=== PATIENT | female | born 1990 | race Caucasian/White ===

== ENCOUNTER 2020-04-29 07:08 | Observation (INO) | payer BC ==
[2020-04-29] MEDS ORDERED: KETOROLAC TROMETHAMINE 60 MG/2 ML SDV ONE (09:32)
[2020-04-29] MEDS ORDERED: METOCLOPRAMIDE HCL INJ/PF 10 MG/2 ML SDV ONE (09:32)
[2020-04-29] MEDS ORDERED: ONDANSETRON HCL INJ/PF 4 MG/2 ML SDV ONE (09:32)
[2020-04-29] MEDS ORDERED: DEXAMETHASONE SOD PHOSPHATE INJ 4 MG/1 ML VIAL ONE (09:32)
[2020-04-29] MEDS ORDERED: LIDOCAINE 2% INJ-PF (20 MG/ML) 2 ML AMPUL ONE (09:32)
[2020-04-29] MEDS ORDERED: ROCURONIUM BROMIDE INJ 50 MG/5 ML VIAL IV ONE (09:32)
[2020-04-29] MEDS ORDERED: NORMAL SALINE 1000 ML 1,000 ML IV ONE ×2 (10:08→14:44)
--- NOTE | 2020-04-29 10:09 | ER Document Report ---
ED General - General Stated Complaint: NAUSEA/VOMITING Time Seen by Provider: 04/29/20 09:34 Mode of Arrival: Medic Information source: Patient Notes: This 29-year-old woman presents to the emergency department via EMS with a complaint of nausea and vomiting, abdominal pain with associated diarrhea. She states that she ate steak and zucchini from a local restaurant last night. Began having symptoms in the eeg tech about 5 AM and has continued to feel dizzy lightheaded and nauseated. She complains of pain in the lower abdominal region, presently stating she does not need anything for pain. She denies fev er, cough, body aches and pains or contact with coronavirus known patient. - Related Data Allergies/Adverse Reactions: No Known Allergies Allergy (Verified 04/29/20 11:30) Past Medical History - Social History Smoking Status: Unknown if Ever Smoked Family History: Reviewed & Not Pertinent Review of Systems - Review of Systems Notes: Constitutional: Negative for fever. HENT: Negative for sore throat. Eyes: Negative for visual changes. Cardiovascular: Negative for chest pain. Respiratory: Negative for shortness of breath. Gastrointestinal: + Abdominal pain, +vomiting ,+ diarrhea. Genitourinary: Negative for dysuria. Musculoskeletal: Negative for back pain. Skin: Negative for rash. Neurological: Negative for headaches, weakness or numbness. 10 point ROS negative except as marked above and in HPI. Physical Exam - Vital signs Vitals: Temp Pulse Resp BP Pulse Ox 97.7 F 93 20 115/75 100 04/29/20 07:30 04/29/20 07:30 04/29/20 07:30 04/29/20 07:30 04/29/20 07:30 - Notes Notes: PHYSICAL EXAMINATION: Physical Exam: General: Well-nourished well-developed 29-year-old female in no acute distress HEENT: NC/AT, pupils equal round and reactive to light, MM moist,nares clear, oropharynx clear, airway patent Neck: supple, no adenopathy, no masses. Good range of motion Lungs: clear, no wheezing, no rales no rhonchi CVS: Regular rate and rhythm no murmur gallop or rub Abdomen: Soft, active, right lower quadrant tenderness at McBurney's point, + rebound, no masses, no hepatosplenomegaly Ext: No edema, clubbing or cyanosis. Neuro: Alert and responsive, moving all 4 extremities on command, cranial nerves intact, no focal findings Skin: Intact no open lesions, no rash PSYCH: Normal mood, normal affect. Course - Re-evaluation Re-evalutation: 04/29/20 14:39 I have discussed the findings of the CT scan with the patient. Apparently noted by radiology to have appendix which appears prominent and fluid-filled. Very little intra-abdominal fat limits evaluation for associated inflammatory change. Otherwise CT of the abdomen pelvis is normal. I have explained to the patient I will have a surgical consultation to evaluate her for possible appendectomy. Patient notes that she needs something else for pain. 04/29/20 14:43 I discussed the patient with a surgical nurse production control coordinator Dr. Ness they will see the patient in the emergency department. A rapid coronavirus test is ordered and patient is started on the antibiotics and fluids. - Vital Signs Vital signs: Temp Pulse Resp BP Pulse Ox 98.0 F 89 18 99/54 L 98 04/30/20 03:29 04/30/20 03:29 04/30/20 03:29 04/30/20 03:29 04/30/20 03:29 - Laboratory Result Diagrams: 04/29/20 10:50 04/29/20 10:50 Laboratory results interpreted by me: 04/29/20 04/29/20 04/29/20 10:50 10:50 10:50 WBC 18.4 H Seg Neuts % (Manual) 88 H Band Neutrophils % 7 H Lymphocytes % (Manual) 2 L Abs Neuts (Manual) 17.5 H Abs Lymphs (Manual) 0.4 L Chloride 108 H Urine Protein 30 H Urine Glucose (UA) 50 H Urine Ketones 80 H - Diagnostic Test Radiology reviewed: Image reviewed, Reports reviewed Discharge - Discharge Clinical Impression: Right lower quadrant abdominal pain Acute appendicitis Qualifiers: Acute appendicitis type: unspecified acute appendicitis type Qualified Code(s): K35.80 - Unspecified acute appendicitis Leukocytosis Qualifiers: Leukocytosis type: other Qualified Code(s): D72.828 - Other elevated white blood cell count Condition: Good Disposition: ADMITTED INPATIENT Admitting Provider: Surgicalist - Dr. Ness Unit Admitted: Surgical Floor
[2020-04-29 11:15] LABS: HEMATOCRIT 43.1 % (36.0-47.0); HEMOGLOBIN 14.8 g/dL (12.0-15.5); MEAN CORPUSCULAR HEMOGLOBIN 31.4 pg (27.0-33.4); MEAN CORPUSCULAR HGB CONC 34.3 g/dL (32.0-36.0); MEAN CORPUSCULAR VOLUME 92 fl (80-97); PLATELET COUNT 182 10^3/uL (150-450); RED CELL DISTRIBUTION WIDTH 12.4 % (11.5-14.0); WHITE BLOOD COUNT 18.4 10^3/uL (4.0-10.5)
[2020-04-29 11:40] LABS: ALKALINE PHOSPHATASE 52 U/L (38-126); ANION GAP 7 (5-19); ASPARTATE AMINO TRANSFERASE 35 U/L (14-36); BLOOD UREA NITROGEN 11 mg/dL (7-20); CALCIUM 8.6 mg/dL (8.4-10.2); CARBON DIOXIDE 23 mmol/L (22-30); CHLORIDE 108 mmol/L (98-107); GLUCOSE 107 mg/dL (75-110)
[2020-04-29 11:49] LABS: ABSOLUTE LYMPHOCYTES# (MANUAL) 0.4 10^3/uL (0.5-4.7); ABSOLUTE MONOCYTES # (MANUAL) 0.6 10^3/uL (0.1-1.4); BAND NEUTROPHILS % (MANUAL) 7 % (3-5); BASOPHILS % (MANUAL) 0 % (0-2); EOSINOPHILS % (MANUAL) 0 % (0-6); LYMPHOCYTES % (MANUAL) 2 % (13-45); MONOCYTES % (MANUAL) 3 % (3-13); SEGMENTED NEUTROPHILS % (MAN) 88 % (42-78); TOTAL CELLS COUNTED 100
[2020-04-29 11:50] LABS: PLATELET COMMENT ADEQUATE; RBC MORPHOLOGY COMMENT NORMO-CYTIC/CHROMIC
[2020-04-29 11:53] LABS: APPEARANCE,URINE CLEAR; BILIRUBIN,URINE NEGATIVE (NEGATIVE); COLOR,URINE YELLOW; GLUCOSE, URINE 50 mg/dL (NEGATIVE); KETONES,URINE 80 mg/dL (NEGATIVE); PROTEIN,URINE 30 mg/dL (NEGATIVE); URINE SPECIFIC GRAVITY 1.018; UROBILINOGEN,URINE NEGATIVE mg/dL (<2.0)
[2020-04-29] MEDS ORDERED: ONDANSETRON HCL INJ/PF 4 MG/2 ML SDV IV ONE (12:09)
[2020-04-29] MEDS ORDERED: HYDROMORPHONE HCL INJ/PF 2 MG/ML AMPULE IV ONE (12:09)
--- NOTE | 2020-04-29 14:14 | RADIOLOGY REPORT (SQ) ---
EXAM DESCRIPTION: CT ABD/PELVIS WITH IV ONLY IMAGES COMPLETED DATE/TIME: 04/29/2020 1:53 pm REASON FOR STUDY: Abdominal pain, right lower quadrant COMPARISON: None. TECHNIQUE: CT scan of the abdomen and pelvis performed using helical scanning technique with dynamic intravenous contrast injection. No oral contrast. Images reviewed with lung, soft tissue, and bone windows. Reconstructed coronal and sagittal MPR images reviewed. Delayed images for evaluation of the urinary system also acquired. All images stored on PACS. All CT scanners at this facility use dose modulation, iterative reconstruction, and/or weight based d osing when appropriate to reduce radiation dose to as low as reasonably achievable (ALARA). [facility]: Dose Right [facility]: CareDose [facility]: Dose Right [facility]: Teradose 4D [facility]: Metaboli CONTRAST TYPE AND DOSE: contrast/concentration: Isovue 350.00 mmol/ml; Total Contrast Delivered: 67. 0 ml; Total Saline Delivered: 42.0 ml RENAL FUNCTION: BUN 11; creatinine 0.5 RADIATION DOSE: CT Rad equipment meets quality standard of care and radiation dose reduction techniq ues were employed. CTDIvol: NaN - NaN mGy. DLP: 0 mGy-cm.. LIMITATIONS: None. FINDINGS: LOWER CHEST: No significant findings. No nodules or infiltrates. LIVER: Normal size. No masses. No dilated ducts. SPLEEN: Normal size. No focal lesions. PANCREAS: No masses. No significant calcifications. No adjacent inflammation or peripancreatic fluid collections. Pancreatic duct not dilated. GALLBLADDER: No identified stones by CT criteria. No inflammatory changes to suggest cholecystitis. ADRENAL GLANDS: No significant masses or asymmetry. RIGHT KIDNEY AND URETER: No solid masses. No significant calcifications. No hydronephrosis or hyd roureter. LEFT KIDNEY AND URETER: No solid masses. No significant calcifications. No hydronephrosis or hydr oureter. AORTA AND VESSELS: No aneurysm. No dissection. Renal arteries, SMA, celiac without stenosis. RETROPERITONEUM: No retroperitoneal adenopathy, hemorrhage or masses. BOWEL AND PERITONEAL CAVITY: No inflammatory changes or obstruction. Fluid is seen within multiple l oops of small bowel. APPENDIX: The appendix appears fluid filled and mildly prominent, measuring up to 11 mm in greatest o rthogonal dimension. This structure is positioned deep within the pelvis adjacent to the right adnex a. PELVIS: Simple appearing free fluid is seen within the pelvic cul-de-sac. The uterus and adnexa appe ar grossly normal. The bladder is unremarkable. ABDOMINAL WALL: No masses. No hernias. BONES: No significant or acute findings. OTHER: No other significant finding. IMPRESSION: The appendix appears mildly prominent and fluid-filled. There is a paucity of intra-abd ominal fat, limiting evaluation for associated inflammatory changes. Otherwise unremarkable CT appea lindsay of the abdomen and pelvis. TECHNICAL DOCUMENTATION: JOB ID: [id number] Quality ID # [id number]: Final reports with documentation of one or more dose reduction techniques (e.g., Au tomated exposure control, adjustment of the mA and/or kV according to patient size, use of iterative reconstruction technique) 2010 [employer]- All Rights Reserved Reading location - IP/workstation name: [email or web address]
[2020-04-29] MEDS ORDERED: PIPERACILLIN/TAZOBACTAM 3.375 GM VIAL IV ONE (14:43)
[2020-04-29] MEDS ORDERED: PROPOFOL INJ 200 MG/20 ML VIAL IV ONE (16:43)
[2020-04-29] MEDS ORDERED: HYDROMORPHONE HCL INJ/PF 2 MG/ML AMPULE ONE (16:43)
[2020-04-29] MEDS ORDERED: MIDAZOLAM 2 MG/2 ML INJ ONE (16:43)
--- NOTE | 2020-04-29 17:08 | PDOC H&P ---
History of Present Illness Admission Date/PCP: 04/29/20 15:44 Patient complains of: Abdominal pain History of Present Illness: PAO ALVAREZ is a 29 year old female Presents emergency department via ground rescue complaining of a 1.5-day history of abdominal pain localized to the suprapubic area and right lower quadrant. Patient was seen in the emergency department where she is found to have right lower quadrant tenderness and a leukocytosis of 18,000. A CT scan of the abdomen was performed without oral contrast which showed a thickened appendix, fluid-filled consistent with early appendicitis, no evidence of free air; minimal fluid in the pelvis. Surgery was consulted. COVID-19 test obtained which was negative. Patient reports having some crampy abdominal pain, loose stools diarrhea all fairly new in onset several weeks ago. She saw compounding scaler at [facility] within the past 2 weeks who recommended fiber. No procedures were perf ormed. Patient denies family history of inflammatory bowel disease, trauma, or previous abdominal problems. She denies constipation. Past Medical History Medical History: None Psychiatric Medical History: Reports: Depression Past Surgical History Past Surgical History: Reports: Tonsillectomy Social History Information Source: Patient Smoking Status: Never Smoker Electronic Cigarette use?: No Frequency of Alcohol Use: Rare Hx Recreational Drug Use: No Family History Family History: None Parental Family History Reviewed: No Children Family History Reviewed: No Sibling(s) Family History Reviewed.: No Medication/Allergy Allergies/Adverse Reactions: No Known Allergies Allergy (Verified 04/29/20 11:30) Review of Systems Constitutional: PRESENT: as per HPI Eyes: ABSENT: visual disturbances Ears: ABSENT: hearing changes Cardiovascular: ABSENT: chest pain, dyspnea on exertion, edema, orthropnea, palpitations Respiratory: ABSENT: cough, hemoptysis Gastrointestinal: PRESENT: as per HPI Genitourinary: ABSENT: dysuria, hematuria Musculoskeletal: ABSENT: joint swelling Integumentary: ABSENT: rash, wounds Neurological: ABSENT: abnormal gait, abnormal speech, confusion, dizziness, focal weakness, syncope Psychiatric: ABSENT: anxiety, depression, homidical ideation, suicidal ideation Hematologic/Lymphatic: ABSENT: easy bleeding, easy bruising Physical Exam Vital Signs: Temp Pulse Resp BP Pulse Ox 97.7 F 93 20 115/75 100 04/29/20 09:15 04/29/20 07:30 04/29/20 07:30 04/29/20 07:30 04/29/20 07:30 Intake & Output 04/28/20 04/29/20 04/30/20 06:59 06:59 06:59 Intake Total 1000 Balance 1000 Weight 59 kg General appearance: PRESENT: no acute distress Head exam: PRESENT: normocephalic Eye exam: PRESENT: EOMI Mouth exam: PRESENT: dry mucosa Neck exam: PRESENT: full ROM Respiratory exam: PRESENT: clear to auscultation christiano Cardiovascular exam: PRESENT: RRR Pulses: PRESENT: normal carotid pulses, normal radial pulses, normal femoral pulses, normal dorsalis pedis pul GI/Abdominal exam: PRESENT: guarding, other - Tender right lower quadrant with guarding to moderate palpation. No rigidity. No umbilical groin hernias. Rectal exam: PRESENT: deferred Extremities exam: PRESENT: full ROM Musculoskeletal exam: PRESENT: full ROM Neurological exam: PRESENT: oriented to person, oriented to place, oriented to time, oriented to situation Psychiatric exam: PRESENT: appropriate affect Skin exam: PRESENT: dry Results Laboratory Results: 04/29/20 10:50 04/29/20 10:50 04/29/20 04/29/20 04/29/20 10:50 10:50 10:50 WBC 18.4 H RBC 4.70 Hgb 14.8 Hct 43.1 MCV 92 MCH 31.4 MCHC 34.3 RDW 12.4 Plt Count 182 Seg Neutrophils % Not Reportable Sodium 137.5 Potassium 4.0 Chloride 108 H Carbon Dioxide 23 Anion Gap 7 BUN 11 Creatinine 0.55 Est GFR ( Amer) > 60 Glucose 107 Calcium 8.6 Total Bilirubin 1.0 AST 35 Alkaline Phosphatase 52 Total Protein 7.0 Albumin 4.0 Urine Color YELLOW Urine Appearance CLEAR Urine pH 8.0 Ur Specific [place] 1.018 Urine Protein 30 H Urine Glucose (UA) 50 H Urine Ketones 80 H Urine Blood NEGATIVE Urine RBC (Auto) 2 Impressions: Abdomen/Pelvis CT 04/29/20 12:10 IMPRESSION: The appendix appears mildly prominent and fluid-filled. There is a paucity of intra-abdominal fat, limiting evaluation for associated inflammatory changes. Otherwise unremarkable CT appearance of the abdomen and pelvis. Assessment & Plan - Diagnosis (1) Acute appendicitis Qualifiers: Acute appendicitis type: unspecified acute appendicitis type Qualified Code(s): K35.80 - Unspecified acute appendicitis Is this a current diagnosis for this admission?: Yes Plan: Impression: Right lower quadrant abdominal pain and tenderness, localized, le ukocytosis and CT scan findings consistent with appendicitis. Anatomically the appendix is retrocecal, possibly explaining patient's acute abdominal pain for the prior several weeks. Recommendations: 1. Admit to surgical service, n.p.o., IV fluids; I have offered her interval laparoscopic, possible open appendectomy, general anesthesia, this evening. Risk benefits and alternatives to the planned procedure explained the patient including bleeding, infection, injury to associated structures. She expresses her understanding agrees to proceed. 2. Anticipate discharge home the next 24 hours. - Time Time Spent: 30 to 50 Minutes Smoking Cessation Education: over 10 minutes Medications reviewed and adjusted accordingly: Yes Anticipated discharge: Home
[2020-04-29] MEDS ORDERED: BUPIVACAINE HCL 0.25 % INJ/PF (2.5 MG/1 ML) 30 ML VIAL ONE (17:14)
[2020-04-29] MEDS ORDERED: ONDANSETRON HCL INJ/PF 4 MG/2 ML SDV IV PRN ×2 (17:50→18:31)
[2020-04-29] MEDS ORDERED: MEPERIDINE HCL/PF INJ 25 MG/1 ML DISP.SYRIN IV PRN (17:50)
[2020-04-29] MEDS ORDERED: PROMETHAZINE HCL INJ 25 MG/1 ML VIAL IV PRN ×2 (17:50)
[2020-04-29] MEDS ORDERED: FENTANYL CITRATE INJ/PF 100 MCG/2 ML AMPUL IV PRN ×3 (17:50)
[2020-04-29] MEDS ORDERED: DIPHENHYDRAMINE HCL 50 MG/ML VIAL IV PRN (17:50)
[2020-04-29] MEDS ORDERED: OXYCODONE-ACETAMINOPHEN 5-325 MG TABLET PO PRN ×2 (17:50)
[2020-04-29] MEDS ORDERED: SUGAMMADEX SODIUM 200 MG/2 ML SDV IV ONE (18:21)
[2020-04-29] MEDS ORDERED: KETOROLAC TROMETHAMINE INJ/PF 30 MG/1 ML SDV IV PRN (18:31)
--- NOTE | 2020-04-29 18:31 | Operative Report ---
Operative Report DATE OF SURGERY: 04/29/20 PREOPERATIVE DIAGNOSIS: Acute appendicitis POSTOPERATIVE DIAGNOSIS: Same; no evidence of rupture OPERATION: Laparoscopic appendectomy SURGEON: LESTER GUTIERREZ ANESTHESIA: GA TISSUE REMOVED OR ALTERED: 1 appendix COMPLICATIONS: None ESTIMATED BLOOD LOSS: 20 cc INTRAOPERATIVE FINDINGS: See below PROCEDURE: Patient was taken to the preop holding area, after voiding, to the main operating room where general anesthesia was induced. Arms were tucked, abdomen exposed, prepped and draped in a sterile fashion with Betadine. Surgical plan surgical timeout were conducted. Markings were made on the skin for 3 port laparoscopy, above the umbilicus, in the suprapubic area and in the left lower quadrant. Skin was anesthetized 1% plain lidocaine. A supraumbilical vertical incision was made with the knife, Veress needle inserted into the peritoneal cavity, pneumoperitoneum was established. Veress needle was removed, and a 5 mm port was inserted and a flexible 5 mm scope was inserted. There was no evidence of vascular or visceral injury. Under direct visualization 2 additional ports were placed one 5 mm the suprapubic position, and a 12 mm in the left lower quadrant all inserted under direct visualization without difficulty. Findings were significant for a freely suspended appendix, acutely inflamed mildly separative but without perforation. The terminal ileum, and colon appeared normal otherwise. There was no significant fluid in the pelvis. The uterus and right tube and ovary appeared normal. We brought onto the field a green load [place] 45 mm autostapler. An opening was made in the mesoappendix adjacent to the shoulder of the proximal appendix adjacent to the cecum. Initially we fired the stapler in the usual fashion but it did not deploy properly. Therefore it was scrapped and a replacement stapler was brought onto the field. This time the stapler fired satisfactorily and delivered a nice parallel line of yael across the appendiceal stump. We now use the same stapler with a reload and divided the mesoappendix, keeping the terminal ileum and cecum out of harm's way. The appendix was now freed up, placed in an Endobag and brought out of the patient without difficulty. Inspection of the mesoappendix staple line revealed brisk arterial bleeding. This was responsible for some of the 20 cc of blood loss. The bleeding was managed with point electrocautery application x1, and 2 hemoclips again along th e staple line securing the mesoappendix. The yael across the appendiceal stump were intact. We irrigated the peritoneal cavity out particularly of the below that accumulated around the right paracolic gutter and right lobe of the liver. Once this was accomplished we reinspected the staple lines previously described and they were not bleeding. We reinspected the pelvis and there was no pathology here. Sponge and needle counts are correct. All ports removed under direct visualization, pneumoperitoneum evacuated, and wounds closed with 0 Vicryl 3-0 Vicryl benzoin and Steri-Strips. Patient tolerated the procedure well, extubated, taken to the recovery room in stable condition.
[2020-04-29] MEDS: MEPERIDINE HCL/PF INJ 25 MG/1 ML DISP.SYRIN ONE ×2 (18:50→18:55)
[2020-04-29] MEDS: RINGERS SOLUTION,LACTATED 1,000 ML IV PRN (19:40)
[2020-04-30] MEDS: RINGERS SOLUTION,LACTATED 1,000 ML IV PRN (06:07)
--- NOTE | 2020-04-30 09:33 | PDOC PROGRESS REPORT ---
Subjective Progress Note for:: 04/30/20 Subjective:: Feels well. Some mild abdominal discomfort. Tolerating a diet well. Reason For Visit: ACUTE APPENDICITIS Physical Exam Vital Signs: Temp Pulse Resp BP Pulse Ox 98.0 F 89 18 99/54 L 98 04/30/20 03:29 04/30/20 03:29 04/30/20 03:29 04/30/20 03:29 04/30/20 03:29 Intake & Output 04/29/20 04/30/20 05/01/20 06:59 06:59 06:59 Intake Total 6238 Output Total 1020 Balance 5218 Weight 49.1 kg General appearance: PRESENT: no acute distress, cooperative Respiratory exam: PRESENT: clear to auscultation christiano Cardiovascular exam: PRESENT: RRR GI/Abdominal exam: PRESENT: other - Soft, nondistended, minimal tenderness. Wounds are clean with Steri-Strips. Results Laboratory Results: 04/29/20 10:50 04/29/20 10:50 04/29/20 04/29/20 04/29/20 10:50 10:50 10:50 WBC 18.4 H RBC 4.70 Hgb 14.8 Hct 43.1 MCV 92 MCH 31.4 MCHC 34.3 RDW 12.4 Plt Count 182 Seg Neutrophils % Not Reportable Sodium 137.5 Potassium 4.0 Chloride 108 H Carbon Dioxide 23 Anion Gap 7 BUN 11 Creatinine 0.55 Est GFR ( Amer) > 60 Glucose 107 Calcium 8.6 Total Bilirubin 1.0 AST 35 Alkaline Phosphatase 52 Total Protein 7.0 Albumin 4.0 Urine Color YELLOW Urine Appearance CLEAR Urine pH 8.0 Ur Specific [place] 1.018 Urine Protein 30 H Urine Glucose (UA) 50 H Urine Ketones 80 H Urine Blood NEGATIVE Urine RBC (Auto) 2 Impressions: Abdomen/Pelvis CT 04/29/20 12:10 IMPRESSION: The appendix appears mildly prominent and fluid-filled. There is a paucity of intra-abdominal fat, limiting evaluation for associated inflammatory changes. Otherwise unremarkable CT appearance of the abdomen and pelvis. Assessment & Plan - Diagnosis (1) Acute appendicitis Qualifiers: Acute appendicitis type: unspecified acute appendicitis type Qualified Code(s): K35.80 - Unspecified acute appendicitis Is this a current diagnosis for this admission?: Yes Plan: Doing well status post laparoscopic appendectomy. Will discharge patient home.
--- NOTE | 2020-04-30 09:36 | PDOC DISCHARGE SUMMARY ---
General - Admit/Disc Date/PCP Admission Date/Primary Care Provider: 04/29/20 15:44 Discharge Date: 04/30/20 - Discharge Diagnosis Final Diagnosis: Appendicitis - Assessment Summary: Patient underwent laparoscopic appendectomy. Patient did well postoperatively. Her exam looks good and she was tolerating a diet well at the time of discharge. Patient is now been discharged to home in good condition. She is encouraged to stay active at home but avoid strenuous activity. She may shower tomorrow. She may resume her home diet. She is to stay out of work for the next week. She is to follow-up at [facility] with Dr. Ness in 1 to 2 weeks. She may take Tylenol [id number] as needed for pain. She is to call for any problems such as fever, purulent drainage, wound redness, vomiting, progressively worsening pain. She is to avoid driving for the next several days until her mind is clear and she is not distracted by abdominal discomfort. - Additional Information Resuscitation Status: Full Code Discharge Diet: As Tolerated Discharge Activity: Activity As Tolerated - Stay active but avoid strenuous activity. Referrals: LESTER NESS MD [ACTIVE STAFF] - History of Present Illiness History of Present Illness: PAO ALVAREZ is a 29 year old female Physical Exam Vital Signs: Temp Pulse Resp BP Pulse Ox 98.0 F 89 18 99/54 L 98 04/30/20 03:29 04/30/20 03:29 04/30/20 03:29 04/30/20 03:29 04/30/20 03:29 Intake & Output 04/29/20 04/30/20 05/01/20 06:59 06:59 06:59 Intake Total 6238 Output Total 1020 Balance 5218 Weight 49.1 kg Results Laboratory Results: WBC 18.4 10^3/uL (4.0-10.5) H 04/29/20 10:50 RBC 4.70 10^6/uL (3.72-5.28) 04/29/20 10:50 Hgb 14.8 g/dL (12.0-15.5) 04/29/20 10:50 Hct 43.1 % (36.0-47.0) 04/29/20 10:50 MCV 92 fl (80-97) 04/29/20 10:50 MCH 31.4 pg (27.0-33.4) 04/29/20 10:50 MCHC 34.3 g/dL (32.0-36.0) 04/29/20 10:50 RDW 12.4 % (11.5-14.0) 04/29/20 10:50 Plt Count 182 10^3/uL (150-450) 04/29/20 10:50 Lymph % (Auto) Not Reportable 04/29/20 10:50 [place] % (Auto) Not Reportable 04/29/20 10:50 Eos % (Auto) Not Reportable 04/29/20 10:50 Baso % (Auto) Not Reportable 04/29/20 10:50 Absolute Neuts (auto) Not Reportable 04/29/20 10:50 Absolute Lymphs (auto) Not Reportable 04/29/20 10:50 Absolute Monos (auto) Not Reportable 04/29/20 10:50 Absolute Eos (auto) Not Reportable 04/29/20 10:50 Absolute Basos (auto) Not Reportable 04/29/20 10:50 Total Counted 100 04/29/20 10:50 Seg Neutrophils % Not Reportable 04/29/20 10:50 Seg Neuts % (Manual) 88 % (42-78) H 04/29/20 10:50 Band Neutrophils % 7 % (3-5) H 04/29/20 10:50 Lymphocytes % (Manual) 2 % (13-45) L 04/29/20 10:50 Monocytes % (Manual) 3 % (3-13) 04/29/20 10:50 Eosinophils % (Manual) 0 % (0-6) 04/29/20 10:50 Basophils % (Manual) 0 % (0-2) 04/29/20 10:50 Abs Neuts (Manual) 17.5 10^3/uL (1.7-8.2) H 04/29/20 10:50 Abs Lymphs (Manual) 0.4 10^3/uL (0.5-4.7) L 04/29/20 10:50 Abs Monocytes (Manual) 0.6 10^3/uL (0.1-1.4) 04/29/20 10:50 Absolute Eos (Manual) 0.0 10^3/uL (0.0-0.6) 04/29/20 10:50 Abs Basophils (Manual) 0.0 10^3/uL (0.0-0.2) 04/29/20 10:50 Platelet Comment ADEQUATE 04/29/20 10:50 RBC Morph Comment NORMO-CYTIC/CHROMIC 04/29/20 10:50 Sodium 137.5 mmol/L (137-145) 04/29/20 10:50 Potassium 4.0 mmol/L (3.6-5.0) 04/29/20 10:50 Chloride 108 mmol/L (98-107) H 04/29/20 10:50 Carbon Dioxide 23 mmol/L (22-30) 04/29/20 10:50 Anion Gap 7 (5-19) 04/29/20 10:50 BUN 11 mg/dL (7-20) 04/29/20 10:50 Creatinine 0.55 mg/dL (0.52-1.25) 04/29/20 10:50 Est GFR ( Amer) > 60 (>60) 04/29/20 10:50 Est GFR (MDRD) Non-Af > 60 (>60) 04/29/20 10:50 Glucose 107 mg/dL (75-110) 04/29/20 10:50 Calcium 8.6 mg/dL (8.4-10.2) 04/29/20 10:50 Total Bilirubin 1.0 mg/dL (0.2-1.3) 04/29/20 10:50 Direct Bilirubin 0.0 mg/dL (0.0-0.4) 04/29/20 10:50 Neonat Total Bilirubin Not Reportable 04/29/20 10:50 Neonat Direct Bilirubin Not Reportable 04/29/20 10:50 Neonat Indirect Bili Not Reportable 04/29/20 10:50 AST 35 U/L (14-36) 04/29/20 10:50 ALT 16 U/L (<35) 04/29/20 10:50 Alkaline Phosphatase 52 U/L (38-126) 04/29/20 10:50 Total Protein 7.0 g/dL (6.3-8.2) 04/29/20 10:50 Albumin 4.0 g/dL (3.5-5.0) 04/29/20 10:50 Urine Color YELLOW 04/29/20 10:50 Urine Appearance CLEAR 04/29/20 10:50 Urine pH 8.0 (5.0-9.0) 04/29/20 10:50 Ur Specific [place] 1.018 04/29/20 10:50 Urine Protein 30 mg/dL (NEGATIVE) H 04/29/20 10:50 Urine Glucose (UA) 50 mg/dL (NEGATIVE) H 04/29/20 10:50 Urine Ketones 80 mg/dL (NEGATIVE) H 04/29/20 10:50 Urine Blood NEGATIVE (NEGATIVE) 04/29/20 10:50 Urine Nitrite (Reflex) NEGATIVE (NEGATIVE) 04/29/20 10:50 Urine Bilirubin NEGATIVE (NEGATIVE) 04/29/20 10:50 Urine Urobilinogen NEGATIVE mg/dL (<2.0) 04/29/20 10:50 Leukocyte Esterase Rfl NEGATIVE (NEGATIVE) 04/29/20 10:50 Urine RBC (Auto) 2 /HPF 04/29/20 10:50 Urine WBC (Reflex) 2 /HPF 04/29/20 10:50 Urine Mucus (Auto) RARE /LPF 04/29/20 10:50 Urine Ascorbic Acid NEGATIVE (NEGATIVE) 04/29/20 10:50 Urine HCG, Qual NEGATIVE (NEGATIVE) 04/29/20 10:50 COVID-19 Source Cancelled 04/29/20 12:30 COVID-19 (RDODY) Cancelled 04/29/20 12:30 SARS-CoV-2 (PCR) NEGATIVE (NEGATIVE) 04/29/20 12:30 Impressions: Abdomen/Pelvis CT 04/29/20 12:10 IMPRESSION: The appendix appears mildly prominent and fluid-filled. There is a paucity of intra-abdominal fat, limiting evaluation for associated inflammatory changes. Otherwise unremarkable CT appearance of the abdomen and pelvis.
[2020-04-30 09:37] VITALS: BP 109/70
[2020-04-30] MEDS ORDERED: DOCUSATE SODIUM 100 MG CAPSULE PO SCH (10:00)
== END 2020-04-30 10:25 | disposition home or self-care (01) ==
LOC: ER 07:08 → EDBD 07:08 → EH 15:44 → 4S 19:22
PROVIDERS: ADMIT Surgery; ATTEND Surgery
DX: K35.30 Acute appendicitis with localized peritonitis, without perforation or gangrene (principal); Z03.818 Encounter for observation for suspected exposure to other biological agents ruled out
CPT/HCPCS: 99285; 96361; 96375; 96365; 36415; 85025; 87635; 81025; 80053; 81001; 88304 ×2; 74177; 99140; 00840; 44970; J2250; J3490 ×3; J1100; J1885 ×2; J2175; J2765; J1170; J2405; J7030; J7120 ×2; J2704; J2543; C9803; 840